=== PATIENT | female | born 1955 | race Caucasian/White ===

== ENCOUNTER 2017-03-17 14:41 | Emergency (ER) | payer BC ==
[~2017-03-17] VITALS: Ht 172.7 cm; Wt 80.3 kg
[2017-03-17 14:47] VITALS: BP_SYST 124
--- NOTE | 2017-03-17 14:52 | NUR ---
Patient triaged and placed in waiting room. VSS and patient appears in no acute distress at this time. Accompanied by , awaiting available bed, and MD notified of need for MSE.
--- NOTE | 2017-03-17 16:06 | NUR ---
place to bed 6 report given to maik MONDRAGON
--- NOTE | 2017-03-17 16:17 | NUR ---
Patient awaiting evaluation by ER MD, c/o left knee pain after moving mattress. Patient ambulates with slow, staedy gait
--- NOTE | 2017-03-17 16:36 | NUR ---
Pt anxious, c/o pain. ER MD notified.
--- NOTE | 2017-03-17 16:50 | NUR ---
pt walked out of ED.
--- NOTE | 2017-03-17 16:50 | NUR ---
Dr. Amato at bedside for evaluation
--- NOTE | 2017-03-17 16:52 | NUR ---
francesco pt back to bed 6, ambulatory with 2 cans.
--- NOTE | 2017-03-17 17:17 | NUR ---
Patient given written and verbal discharge instructions and verbalizes understanding. ER MD discussed with patient the results and treatment provided. Patient in stable condition. ID arm band removed. Rx of TYLENOL WITH CODEINE given. Patient educated on pain management and to follow up with PMD. Pain Scale 9. Opportunity for questions provided and answered.
== END 2017-03-17 17:17 | disposition home or self-care (01) ==
LOC: SED 14:41
DX: S86.912A Strain of unspecified muscle(s) and tendon(s) at lower leg level, left leg, initial encounter (principal); I10 Essential (primary) hypertension; X58.XXXA Exposure to other specified factors, initial encounter; Y93.89 Activity, other specified; Y92.89 Other specified places as the place of occurrence of the external cause; Y99.8 Other external cause status
CPT/HCPCS: 73564; 99284